=== PATIENT | female | born 1985 | race African-American/Black ===

== ENCOUNTER 2018-04-10 12:22 | Emergency (ER) | payer OTHER ==
[2018-04-10] MEDS ORDERED: Ondansetron ODT 4 MG TAB ONE (12:57)
[2018-04-10] MEDS ORDERED: Diazepam 5 MG TAB ONE (13:29)
[2018-04-10] MEDS ORDERED: Ketorolac Tromethamine 60 MG/2 ML VIAL ONE (13:30)
[2018-04-10] MEDS ORDERED: Metoclopramide HCl 10 MG TAB ONE (13:30)
[2018-04-10] MEDS ORDERED: diphenhydrAMINE 25 MG CAP ONE (13:30)
== END 2018-04-10 13:54 | disposition home or self-care (01) ==
LOC: MADERS 12:22
DX: G43.909 Migraine, unspecified, not intractable, without status migrainosus (principal); Z79.899 Other long term (current) drug therapy
CPT/HCPCS: 96372; J1885; Q0162

== ENCOUNTER 2018-05-02 06:14 | Emergency (ER) | payer OTHER ==
[2018-05-02 07:04] LABS: Bilirubin Moderate (Negative); Blood, Urine Large (Negative); Clarity Cloudy (Clear); Glucose, Urine (Dipstick) Negative (Negative); Leukocyte Small (Negative); Nitrite Positive (Negative); Protein, Urine (Dipstick) > or equal to 300 mg/dL (Neg-Trace); Specific Gravity, Urine 1.025 (1.005-1.030); pH, Urine 5.5 (5.0-9.0)
[2018-05-02 07:05] LABS: Bacteria/HPF 1+ HPF (None Seen); RBC/HPF GREATER THAN 50-TNTC HPF (0-3)
[2018-05-02 07:06] LABS: Pregnancy Test - Urine (BHCG) Negative (Negative); Pregu Control Background? CLEAR/WHITE (CLR/WHITE); Pregu Control Bar Appear? YES (CONTROL BAR); Specific Gravity 1.025 (1.002-1.036)
[2018-05-02] MEDS ORDERED: Cephalexin 500 MG CAP ONE (07:30)
[2018-05-02] MEDS ORDERED: Phenazopyridine HCl 97.5 MG TABLET ONE (07:31)
== END 2018-05-02 07:50 | disposition home or self-care (01) ==
LOC: MADERS 06:14
DX: N39.0 Urinary tract infection, site not specified (principal); G43.909 Migraine, unspecified, not intractable, without status migrainosus; Z79.899 Other long term (current) drug therapy
CPT/HCPCS: 81003; 81015; 81025; 87086; 99283